=== PATIENT | male | born 1935 | race Caucasian/White ===

== ENCOUNTER 2020-06-22 21:59 | Emergency (ER) | payer MEDICARE ==
[~2020-06-22] VITALS: Ht 172.7 cm; Wt 63.5 kg
[2020-06-22] MEDS ORDERED: PLAVIX75 MG PO (22:14)
[2020-06-22] MEDS ORDERED: FORTAMET500 MG PO (22:15)
[2020-06-23] MEDS ORDERED: STOOL SOFTENER250 MG PO (00:46)
[2020-06-23] MEDS ORDERED: HYDROCODON-ACE1 EA10 PO (00:46)
== END 2020-06-23 01:36 | disposition home or self-care (01) ==
LOC: ED 21:59 → EDBD 22:00 → ED 06-23 01:36
DX: S42.212A Unspecified displaced fracture of surgical neck of left humerus, initial encounter for closed fracture (principal); Z88.0 Allergy status to penicillin; Z88.2 Allergy status to sulfonamides; Z79.84 Long term (current) use of oral hypoglycemic drugs; Z79.02 Long term (current) use of antithrombotics/antiplatelets; W19.XXXA Unspecified fall, initial encounter
CPT/HCPCS: 70450; 71045; 72125; 72131; 73030; 96374; 99284-25; J2270